=== PATIENT | female | born 1985 | race Caucasian/White ===

== ENCOUNTER 2016-10-13 12:45 | Emergency (ER) | payer OTHER ==
--- NOTE | ~2016-10-13 | EKG ---
PATIENT: SERENE ROCHA UNIT #: [id number] Ventricular Rate: 77 BPM Atrial Rate: 77 BPM P-R Interval: 150 ms QRS Duration: 86 ms Q-T Interval: 372 ms QTC Calculation(Bezet): 420 ms P Mobile: 5 degrees Calculated R Mobile: 86 degrees Calculated T Mobile: 42 degrees Diagnosis Line: Normal sinus rhythm Diagnosis Line: Normal ECG Diagnosis Line: No previous ECGs available Diagnosis Line: Confirmed by TIKA BROWNLEE MD ([id number]) on 10/15/2016 Diagnosis Line: 9:35:59 AM INTERPRETING MD: TORRIE GARCIA
--- NOTE | ~2016-10-13 | CR63 ---
[facility]. [facility] A Service of [facility] RADIOLOGY TEXT RESULTS PATIENT: SERENE ROCHA LOCATION: SED : 81 UNIT #: [id number] AGE: [address]: VICENTE MORALES SEX: F ORDER DR: [id number] [place] [id number] E MR#: [id number] Acc #: [id number] NAME: SERENE ROCHA : 1985 SEX: F STUDY DATE/TIME: 10/13/2016 UNIT: SED ROOM: STUDY DESCRIPTION: CR Chest 2 View Attending Physician: Vicente Morales Aprn Ordering Physician: Vicente Morales Aprn Primary Care Physician: Primary Care Physician No MEDICAL IMAGING REPORT This report is preliminary unless electronic signature is present. EXAM Chest 2 views 10/13/2016 12:51 hours HISTORY 30-year-old woman with complaint of asthma and chest pain in center of chest. This morning. History of cough. COMPARISON None FINDINGS Upright PA and lateral views of the chest demonstrate normal cardiac, mediastinal and hilar contours. The lungs are mildly hyperinflated but clear. There is no effusion or pneumothorax. IMPRESSION Mild hyperinflation with clear lungs. Dictated by... Lucina Brunson M.D. THIS IS AN ELECTRONICALLY VERIFIED REPORT Lucina Brunson M.D. at 10/13/2016 2:30 PM SMM/aly TD: 10/13/2016 13:35 JOB #: [id number] MEDICAL IMAGING REPORT Page 1 of 1
[~2016-10-13 12:45] MED LIST: ALBUTEROL17 GM INH
== END 2016-10-13 14:38 | disposition home or self-care (01) ==
LOC: SED 12:45
DX: R07.9 Chest pain, unspecified (principal); K08.89 Other specified disorders of teeth and supporting structures; I25.2 Old myocardial infarction; J45.909 Unspecified asthma, uncomplicated; F17.210 Nicotine dependence, cigarettes, uncomplicated; Z98.890 Other specified postprocedural states; Z88.8 Allergy status to other drugs, medicaments and biological substances; Z91.040 Latex allergy status; Z79.899 Other long term (current) drug therapy
CPT/HCPCS: 71020; 93005; 99283; 99284